=== PATIENT | female | born 1965 | race Caucasian/White ===

== ENCOUNTER → 2024-08-21 18:37 | Outpatient (CLI) | payer OTHER, SELFPAY ==
--- NOTE | 2024-08-21 18:45 | DI.MRI.S_ITS ---
PROCEDURE: MR LUMBAR SPINE WO CON INDICATIONS: Spondylosis of lspine TECHNIQUE: Noncontrast sagittal T1 spin echo and T2 fast echo, sagittal STIR, and T2 fast spin echo through the lumbar spine. In cases with scoliosis, additional coronal T2 fast spin echo may be performed. COMPARISON: Outside Film, CT, CT LUMBAR SPINE WITHOUT CONTRAST, 07/05/2024, 16:09. FINDINGS: Alignment and Curvature: L4-5 grade 2 anterior degenerative spondylolisthesis. Bone Marrow: T10 wedge-shaped compression fracture with edema predominantly involving the inferior endplate Spinal Cord: Conus medullaris terminates at the L1 level. Visualized cord demonstrates normal signal and size. Paraspinous Soft Tissues: No paravertebral masses. T12-L1: Normal appearance. L1-L2: Normal appearance. L2-L3: Disc bulge with disc space narrowing. Mild central stenosis. No foraminal stenosis. L3-L4: Disc space narrowing with disc bulge and arthropathy. Mild central stenosis. Mild bilateral foraminal stenosis L4-L5: Disc bulge and arthropathy. Ligamentum flavum hypertrophy. Moderate to severe central stenosis. Moderate bilateral foraminal stenosis. L5-S1: Disc bulge and arthropathy. Moderate right and no left foraminal stenosis. No central stenosis. IMPRESSION: Multilevel degenerative disc disease and arthropathy results in varying degrees of central and foraminal stenosis including moderate to severe central stenosis moderate bilateral foraminal stenosis at L4-5 Grade 2 degenerative anterior spondylolisthesis at L4-5 as well Approved by: Jude Gaspar M.D. on 08/24/2024 at 13:19
== END ==
PROVIDERS: Referring Provider Orthopaedic Surgery Orthopaedic Surgery of the Spine; Visit Provider Orthopaedic Surgery Orthopaedic Surgery of the Spine
DX: M43.16 Spondylolisthesis, lumbar region (principal); M47.816 Spondylosis without myelopathy or radiculopathy, lumbar region; M51.369 Other intervertebral disc degeneration, lumbar region without mention of lumbar back pain or lower extremity pain; M48.061 Spinal stenosis, lumbar region without neurogenic claudication; M47.817 Spondylosis without myelopathy or radiculopathy, lumbosacral region; M51.379 Other intervertebral disc degeneration, lumbosacral region without mention of lumbar back pain or lower extremity pain; M48.07 Spinal stenosis, lumbosacral region
CPT/HCPCS: 72148